=== PATIENT | female | born 1985 | race Caucasian/White ===

== ENCOUNTER 2021-04-19 15:04 | Emergency (ER) | payer OTHER ==
[~2021-04-19] VITALS: Ht 170 cm; Wt 73.0 kg
--- NOTE | 2021-04-19 15:18 | ED GI ---
General Stated Complaint: RIGHT SIDE ABD PAIN History of Present Illness Date Seen by Provider: Apr 19, 2021 Time Seen by Provider: 15:15 Initial Comments 35-year-old female presents with 3 days of lower right abdominal pain. States she is currently being treated for UTI and taking Bactrim, but the pain persists. Associated nausea without vomiting. No diarrhea and last bowel movement 2 days ago. Significantly decreased appetite. Last menstrual period 12 March with recent negative test. Past surgical history significant for cholecystectomy Allergies and Home Medications Allergies Coded Allergies: ciprofloxacin (Verified Allergy, Unknown, 04/19/21) Home Medications Hydrocodone/Acetaminophen 1 Each Tablet, 1 EACH PO Q4H Prescribed by: BK AYERS on 04/19/211710 Ondansetron 4 Mg Tab.rapdis, 4 MG PO TID Prescribed by: BK AYERS on 04/19/211709 Patient Home Medication List Home Medication List Reviewed: Yes Review of Systems Review of Systems Constitutional: No chills, No fever; malaise; No weakness EENTM: No Symptoms Reported Respiratory: Denies Cough, Denies Shortness of Air Cardiovascular: Denies Chest Pain, Denies Edema Gastrointestinal: See HPI, Abdominal Pain; Denies Constipated, Denies Diarrhea; Nausea, Poor Appetite; Denies Poor Fluid Intake, Denies Rectal Bleeding, Denies Vomiting Genitourinary: Denies Drainage, Denies Frequency; Flank Pain (right sided); Denies Hematuria, Denies Urgency Musculoskeletal: No back pain, No joint pain Skin: No change in color, No rash Past Krpfubn-Vwmnrt-Bbtmhe Hx Patient Social History Tobacco Use?: No Physical Exam Vital Signs Vital Signs - First Documented 04/19/21 15:23 Temp 36.2 Pulse 56 Resp 16 B/P (MAP) 159/87 (111) Pulse Ox 98 O2 Delivery Room Air Capillary Refill : Height/Weight/BMI Height: '" Weight: lbs. oz. kg; BMI Method: General Appearance: WD/WN, no apparent distress Respiratory: chest non-tender, lungs clear, normal breath sounds, no respiratory distress, no accessory muscle use Cardiovascular: regular rate, rhythm, no JVD Gastrointestinal: normal bowel sounds, soft, no organomegaly, no pulsatile mass; No distended, No rebound; tenderness (RLQ); No hernia, No mass, No hepatomegaly, No spleenomegaly Extremities: normal range of motion, non-tender, normal inspection Back: normal inspection, no CVA tenderness, no vertebral tenderness Neurologic/Psychiatric: alert, normal mood/affect, oriented x 3 Skin: normal color, warm/dry Progress/Results/Core Measures Results/Orders Lab Results Laboratory Tests Test 04/19/21 15:28 Range/Units Urine Color YELLOW Urine Clarity SL CLOUDY Urine pH 6.5 5-9 Urine Specific [place] 1.020 1.016-1.022 Urine Protein NEGATIVE NEGATIVE Urine Glucose (UA) NEGATIVE NEGATIVE Urine Ketones 1+ H NEGATIVE Urine Nitrite NEGATIVE NEGATIVE Urine Bilirubin NEGATIVE NEGATIVE Urine Urobilinogen 0.2 < = 1.0 MG/DL Urine Leukocyte Esterase TRACE H NEGATIVE Urine RBC (Auto) NEGATIVE NEGATIVE Urine RBC 0-2 /HPF Urine WBC 0-2 /HPF Urine Squamous Epithelial Cells 25-50 H /HPF Urine Crystals NONE /LPF Urine Bacteria LARGE H /HPF Urine Casts NONE /LPF Urine Mucus SMALL H /LPF Urine Culture Indicated NO Urine Test NEGATIVE NEGATIVE My Orders Orders - BK AYERS DO Urinalysis (04/19/21 15:16) Hcg,Qualitative Urine (04/19/21 15:16) Ct Abdomen/Pelvis Wo (04/19/21 15:29) Vital Signs/I&O 04/19/21 04/19/21 15:23 17:15 Temp 36.2 36.2 Pulse 56 56 Resp 16 16 B/P (MAP) 159/87 (111) 159/87 (111) Pulse Ox 98 98 O2 Delivery Room Air Progress Progress Note : Progress Note discussed labs and CT results w patient and her . She works for a [employer] and states that she can likely get an ultrasound tomorrow. Advised to do what she needed to do to arrange the study and follow up with her PCP in 1 day. She agrees and understands her appendix is normal and she has a left complex ovarian cystic mass which is undefined at this point and needs further testing to dete rmine a plan of care. Diagnostic Imaging Diagonstic Imaging: CT Comments COMPARISON: None. FINDINGS: Included portions of the lung bases are clear. CT ABDOMEN: Moderate air and stool is seen scattered throughout the colon. Normal appendix is identified. Small bowel loops are nondistended. There is a large spherical structure within the upper pelvis extending into the lower abdomen epicentered just to the left lateral of midline. It measures 6.9 x 8.4 x 7.3 cm. Hounsfield units are 25, which is slightly greater than water. Separate normal left ovary cannot be identified. There does appear to be a separate right ovary. Small amount of free fluid is also noted within the pelvis. There is no free air within the abdomen or pelvis. Hypodense right renal cysts are present. Ureters are difficult to follow in their entirety, but no calculi are seen along the expected course of the ureters. Additionally, there is no hydroureteronephrosis or other evidence of obstruction. The adrenal glands, spleen, pancreas, and liver have an unremarkable noncontrast CT appearance. There is no loculated fluid collection, free fluid, nor free air within the abdomen. No abnormal mesenteric or retroperitoneal adenopathy is seen. Osseous structures show no acute abnormalities. CT PELVIS: Again, there is a large presumed fluid-filled structure within the upper pelvis. Small amount of free fluid is also present. There is no free air. No abnormal adenopathy is seen. Osseous structures show no acute abnormalities. IMPRESSION: 1. Large cystic-appearing fluid-filled structure epicentered within the pelvis just to the left lateral of midline. Exact etiology is indeterminate, but this is favored to be genitourinary in nature and likely arising from the left ovary. Hemorrhagic ovarian cyst is of primary consideration. Cystic neoplasm is not excluded. Further characterization with dedicated pelvic sonogram is recommended. 2. Small amount of free fluid within the pelvis; possibly physiologic. 3. Moderate colonic air and stool. Please correlate for constipation. Dictated by: Dictated on workstation # [id number] Dict: 04/19/21 1638 Trans: 04/19/21 1653 [id number] Interpreted by: KODAK RENEE MD Electronically signed by: KODAK RENEE MD 04/19/21 1658 Departure Impression Primary Impression: Abdominal pain Qualified Codes: R10.31 - Right lower quadrant pain Additional Impression: Pelvic mass in female Disposition: 01 HOME, SELF-CARE Condition: Stable (ERASED) Departure-Patient Inst. Decision time for Depature: 17:08 Referrals: DICK CHURCH APRN (PCP/Family) Primary Care Physician Patient Instructions: Severe Abdominal Pain, Adult (DC) Add. Discharge Instructions: Call your PCP today or tomorrow to arrange for a pelvic ultrasound to further delineate your CT results showing a left ovarian cystic mass. Return to the nearest ER for any worsening of pain Scripts Ondansetron (Ondansetron Odt) 4 Mg Tab.rapdis 4 MG PO TID for Nausea, #10 TAB Prov: BK AYERS DO 04/19/21 Hydrocodone/Acetaminophen (Hydrocodone-Acetamin 5-325 mg) 1 Each Tablet 1 EACH PO Q4H for Abdominal Pain, #10 TAB Prov: BK AYERS DO 04/19/21 Work/School Note: Work Release Form Date Seen in the Emergency Department: Apr 19, 2021 Return to Work: Apr 21, 2021 BK AYERS DO Apr 19, 2021 15:18
[2021-04-19] MEDS ORDERED: NITR-65 PO (15:32)
[2021-04-19 15:50] LABS: CLARITY,URINE SL CLOUDY; COLOR,URINE YELLOW; GLUCOSE, URINE (UA) NEGATIVE (NEGATIVE); KETONES,URINE 1+ (NEGATIVE); PH,URINE 6.5 (5-9); PROTEIN,URINE NEGATIVE (NEGATIVE)
[2021-04-19 15:51] LABS: BACTERIA,URINE LARGE /HPF; BILIRUBIN,URINE NEGATIVE (NEGATIVE); LEUKOCYTE ESTERASE ,URINE TRACE (NEGATIVE); NITRITE,URINE NEGATIVE (NEGATIVE); RBC,URINE 0-2 /HPF; SQUAMOUS EPITHELIAL CELL,UR 25-50 /HPF; WBC,URINE 0-2 /HPF
--- NOTE | 2021-04-19 16:53 | Diagnostic Imaging Report ---
PROCEDURE: CT abdomen and pelvis without contrast. TECHNIQUE: Multiple contiguous axial images were obtained through the abdomen and pelvis without the use of intravenous contrast. Auto Exposure Controls were utilized during the CT exam to meet ALARA standards for radiation dose reduction. INDICATION: Right-sided abdominal pain. COMPARISON: None. FINDINGS: Included portions of the lung bases are clear. CT ABDOMEN: Moderate air and stool is seen scattered throughout the colon. Normal appendix is identified. Small bowel loops are nondistended. There is a large spherical structure within the upper pelvis extending into the lower abdomen epicentered just to the left lateral of midline. It measures 6.9 x 8.4 x 7.3 cm. Hounsfield units are 25, which is slightly greater than water. Separate normal left ovary cannot be identified. There does appear to be a separate right ovary. Small amount of free fluid is also noted within the pelvis. There is no free air within the abdomen or pelvis. Hypodense right renal cysts are present. Ureters are difficult to follow in their entirety, but no calculi are seen along the expected course of the ureters. Additionally, there is no hydroureteronephrosis or other evidence of obstruction. The adrenal glands, spleen, pancreas, and liver have an unremarkable noncontrast CT appearance. There is no loculated fluid collection, free fluid, nor free air within the abdomen. No abnormal mesenteric or retroperitoneal adenopathy is seen. Osseous structures show no acute abnormalities. CT PELVIS: Again, there is a large presumed fluid-filled structure within the upper pelvis. Small amount of free fluid is also present. There is no free air. No abnormal adenopathy is seen. Osseous structures show no acute abnormalities. IMPRESSION: 1. Large cystic-appearing fluid-filled structure epicentered within the pelvis just to the left lateral of midline. Exact etiology is indeterminate, but this is favored to be genitourinary in nature and likely arising from the left ovary. Hemorrhagic ovarian cyst is of primary consideration. Cystic neoplasm is not excluded. Further characterization with dedicated pelvic sonogram is recommended. 2. Small amount of free fluid within the pelvis; possibly physiologic. 3. Moderate colonic air and stool. Please correlate for constipation. Dictated by: Dictated on workstation # [id number]
[2021-04-19] MEDS ORDERED: ACHD5005 PO (17:10)
[2021-04-19] MEDS ORDERED: ONDA4TAB11 PO (17:10)
[2021-04-19 17:15] VITALS: BP 159/87
== END 2021-04-19 17:15 | disposition home or self-care (01) ==
LOC: ER FS 15:06
DX: R19.09 Other intra-abdominal and pelvic swelling, mass and lump (principal); Z32.02 Encounter for pregnancy test, result negative
CPT/HCPCS: 74176; 81000; 84703

== ENCOUNTER → 2021-09-30 | Outpatient (CLI) | payer OTHER ==
[~2021-09-30] MED LIST: ACHD5005 PO; NITR-65 PO; ONDA4TAB11 PO
== END ==
LOC: LABNPT 15:09
PROVIDERS: ATTEND Registered Nurse Emergency
DX: Z20.822 Contact with and (suspected) exposure to COVID-19 (principal)
CPT/HCPCS: 87635